=== PATIENT | female | born 1990 | race Caucasian/White ===

== ENCOUNTER 2017-12-05 18:41 | Emergency (ER) | payer OTHER ==
[2017-12-05] MEDS: FAMOTIDINE 20 MG TABLET. PO (19:28)
[2017-12-05] MEDS: predniSONE 20 MG TABLET PO (19:29)
== END 2017-12-05 19:53 | disposition home or self-care (01) ==
LOC: ER 18:41
DX: K13.0 Diseases of lips (principal); K14.8 Other diseases of tongue; T78.1XXA Other adverse food reactions, not elsewhere classified, initial encounter; X58.XXXA Exposure to other specified factors, initial encounter
CPT/HCPCS: 99283; J7512

== ENCOUNTER 2020-05-08 02:11 | Emergency (ER) | payer OTHER ==
[~2020-05-08] VITALS: Ht 165.1 cm; Wt 72.7 kg
[~2020-05-08 02:11] MED LIST: DIPH25CA58 PO; FAMO20TA5 PO; PRED50TA PO
[2020-05-08] MEDS ORDERED: AMOX500C PO (02:36)
[2020-05-08] MEDS ORDERED: TRAM50TA PO (02:36)
[2020-05-08] MEDS ORDERED: IBUP-1027 PO (02:36)
--- NOTE | 2020-05-08 02:37 | PHYS DOC ---
Past Medical History Past Medical History: No Pertinent History Past Surgical History: Appendectomy, , Tubal ligation Additional Past Surgical Histo: c sect x 6 Smoking Status: Current Every Day Smoker Alcohol Use: None Drug Use: None General Adult EDM: Chief Complaint: DENTAL PROBLEM HPI: HPI: Patient is a 30 year old female presents to ER for evaluation of right-sided lower dental pain for 2 days. Patient was not able to see her dentist until this coming Wednesday, tonight she could not sleep because of the pain so she came here for evaluation. Review of Systems: Review of Systems: Constitutional: Denies fever or chills. [] Eyes: Denies change in visual acuity. [] HENT: Denies nasal congestion or sore throat. Positive for dental pain Respiratory: Denies cough or shortness of breath. [] Cardiovascular: Denies chest pain or edema. [] GI: Denies abdominal pain, nausea, vomiting, bloody stools or diarrhea. [] : Denies dysuria. [] Musculoskeletal: Denies back pain or joint pain. [] Integument: Denies rash. [] Neurologic: Denies headache, focal weakness or sensory changes. [] Endocrine: Denies polyuria or polydipsia. [] Lymphatic: Denies swollen glands. [] Psychiatric: Denies depression or anxiety. [] Heart Score: Risk Factors: Risk Factors: DM, Current or recent (<one month) smoker, HTN, HLP, family h istory of CAD, obesity. Risk Scores: Score 0 - 3: 2.5% MACE over next 6 weeks - Discharge Home Score 4 - 6: 20.3% MACE over next 6 weeks - Admit for Clinical Observation Score 7 - 10: 72.7% MACE over next 6 weeks - Early Invasive Strategies Allergies: Allergies: Allergies Coded Allergies Type Severity Reaction Last Updated Verified pineapple Allergy Unknown Swelling 12/05/17 Yes Physical Exam: PE: Constitutional: Well developed, well nourished, no acute distress, non-toxic appearance. [] HENT: Normocephalic, atraumatic, bilateral external ears normal, oropharynx moist, no oral exudates, nose normal. Right lower 2nd and 1st molars with cavities, tender to palpation, no palpable abscess. Eyes: PERRLA, EOMI, conjunctiva normal, no discharge. [] Neck: Normal range of motion, no tenderness, supple, no stridor. [] Cardiovascular:Heart rate regular rhythm, no murmur [] Lungs & Thorax: Bilateral breath sounds clear to auscultation [] Abdomen: Bowel sounds normal, soft, no tenderness, no masses, no pulsatile masses. [] Skin: Warm, dry, no erythema, no rash. [] Back: No tenderness, no CVA tenderness. [] Extremities: No tenderness, no cyanosis, no clubbing, ROM intact, no edema. [] Neurologic: Alert and oriented X 3, normal motor function, normal sensory function, no focal deficits noted. [] Psychologic: Affect normal, judgement normal, mood normal. [] EKG: EKG: [] Radiology/Procedures: Radiology/Procedures: [] Course & Med Decision Making: Course & Med Decision Making Pertinent Labs and Imaging studies reviewed. (See chart for details) [] Dragon Disclaimer: Dragon Disclaimer: This electronic medical record was generated, in whole or in part, using a voice recognition dictation system. Departure Departure Impression: Primary Impression: Dental decay Additional Impression: Pain due to dental caries Disposition: 01 DC HOME SELF CARE/HOMELESS Condition: STABLE Referrals: NO PCP (PCP) please follolw up with your dentist this week. Patient Instructions: Dental Caries, Dental Pain Additional Instructions: Thank you for visiting our Emergency Department. We appreciate you trusting us with your care. If any additional problems come up don't hesitate to return to visit us. Please follow up with your primary care provider so they can plan additional care if needed and know about the problem that you had. If symptoms worsen come back to the Emergency Department. Any concerning symptoms that start such as chest pain, shortness of air, weakness or numbness on one side of the body, running high fevers or any other concerning symptoms return to the ER. Scripts Ibuprofen (IBUPROFEN) 400 Mg Tablet 400 MG PO PRN Q6HRS PRN for INFLAMMATION, #30 TAB Prov: MICHAEL CASEY DO 05/08/20 Tramadol Hcl (TRAMADOL HCL) 50 Mg Tablet 50 MG PO Q6HRS PRN for PAIN, #20 TAB Prov: MICHAEL CASEY DO 05/08/20 Amoxicillin (AMOXICILLIN) 500 Mg Capsule 1 CAP PO TID, #30 CAP Prov: MICHAEL CASEY DO 05/08/20 MICHAEL CASEY DO May 08, 2020 02:37
[2020-05-08 02:54] VITALS: BP 114/74
[2020-05-08] MEDS ORDERED: AMOXICILLIN 250 MG CAPSULE. PO ONE (03:00)
[2020-05-08] MEDS ORDERED: IBUPROFEN 400 MG TABLET. PO ONE (03:00)
[2020-05-08] MEDS ORDERED: HYDROcodone/APAP 5/325MG 1 TAB TABLET PO ONE (03:00)
== END 2020-05-08 02:55 | disposition home or self-care (01) ==
LOC: ER 02:11
DX: K02.9 Dental caries, unspecified (principal); K08.89 Other specified disorders of teeth and supporting structures; F17.200 Nicotine dependence, unspecified, uncomplicated; Z90.89 Acquired absence of other organs; Z98.51 Tubal ligation status; Z98.890 Other specified postprocedural states; Z91.018 Allergy to other foods
CPT/HCPCS: 99284

== ENCOUNTER 2020-09-22 02:23 | Emergency (ER) | payer OTHER ==
[~2020-09-22] VITALS: Ht 162.6 cm; Wt 72.7 kg
[~2020-09-22 02:23] MED LIST changes: +AMOX500C PO; +IBUP-1027 PO; +TRAM50TA PO
[2020-09-22 02:48] LABS: BILIRUBIN,URINE NEGATIVE (NEG); CLARITY,URINE CLOUDY; COLOR,URINE YELLOW; NITRITE,URINE POSITIVE (NEG); PH,URINE 6.5 (<5.0-8.0); PROTEIN,URINE 30 mg/dL (NEG-TRACE)
--- NOTE | 2020-09-22 02:52 | PHYS DOC ---
Past Medical History Past Medical History: Asthma Past Surgical History: Appendectomy, , Tubal ligation Additional Past Surgical Histo: c sect x 7 Smoking Status: Current Every Day Smoker Alcohol Use: None Drug Use: None General Adult EDM: Chief Complaint: FLANK PAIN HPI: HPI: Patient is a 30 year old female with no past medical history presents with a chief complaint of right flank pain. Patient states flank pain has been ongoing yesterday. Patient states pain has been constant since onset. Associated symptoms include urinary frequency she denies any dysuria. Review of Systems: Review of Systems: Review of systems: Constitutional symptoms- No fever, no chills. Eyes- No Discharge, No Visual Loss Respiratory symptoms- No shortness of breath, No wheezing, No Dyspnea on Exertion Cardiovascular Systems; No chest pain, No Palpitations, No syncope Gastrointestinal symptoms: NO abdominal pain, no nausea, no vomiting or diarrhea. Genitourinary symptoms: No dysuria. Positive urinary frequency positive flank pain Musculoskeletal symptoms: No back pain No extremity pain. NEUROLOGICAL Symptoms: No headache, no generalized weakness; No focal Weakness Heart Score: Risk Factors: Risk Factors: DM, Current or recent (<one month) smoker, HTN, HLP, family history of CAD, obesity. Risk Scores: Score 0 - 3: 2.5% MACE over next 6 weeks - Discharge Home Score 4 - 6: 20.3% MACE over next 6 weeks - Admit for Clinical Observation Score 7 - 10: 72.7% MACE over next 6 weeks - Early Invasive Strategies Current Medications: Current Medications Medications (Trade) Dose Ordered Sig/Kurt Start Time Stop Time Status Last Admin Dose Admin Sodium Chloride 1,000 ml @ 1,000 mls/hr 1X ONCE 09/22/20 02:45 09/22/20 03:44 UNV Allergies: Allergies: Allergies Coded Allergies Type Severity Reaction Last Updated Verified pineapple Allergy Severe Swelling 05/08/20 Yes Physical Exam: PE: General: alert, no acute distress. Skin: warm, dry and intact. Head:: Normocephalic, atraumatic. Neck: Trachea midline. Eyes: EOMI, Normal conjunctiva, No drainage CARDIOVASCULAR: Tachycardia RESPIRATORY: No respiratory distress Back: Full range of motion. MUSCULOSKELETAL: Full range of motion of bilateral upper and lower extremities. GASTROINTESTINAL: Abdomen soft without rebound or guarding. NEUROLOGICAL: Alert and noted to person, place and time. No neurological deficits observed Psychiatric: Cooperative. Normal judgment Current Patient Data: Labs: Laboratory Tests Test 09/22/20 02:45 POC Urine HCG, Qualitative Hcg negative (Negative) Vital Signs: Vital Signs Date Time Temp Pulse Resp B/P (MAP) Pulse Ox O2 Delivery O2 Flow Rate FiO2 09/22/20 02:32 99.2 104 16 148/85 (106) 100 Room Air 99.2 EKG: EKG: [] Radiology/Procedures: Radiology/Procedures: [] Course & Med Decision Making: Course & Med Decision Making Pertinent Labs and Imaging studies reviewed. (See chart for details) [] Treatment included 2 L IV fluids. Patient also received Toradol for pain and Rocephin 1 g Patient's urine positive for leukocyte esterase and nitrates WBC too many to count Discussed hospitalization versus outpatient treatment. Patient states she would like to go home. Discharged home on Pyridium and Keflex 500 3 times daily for 14 days. Patient advised to return to the ER if symptoms persist or get worse or any new concerning symptoms arise. Thu Disclaimer: Thu Disclaimer: This electronic medical record was generated, in whole or in part, using a voice recognition dictation system. Departure Departure Impression: Primary Impression: Flank pain Additional Impressions: Pyelonephritis UTI (urinary tract infection) Disposition: 01 DC HOME SELF CARE/HOMELESS Condition: STABLE Referrals: NO PCP (PCP) Patient Instructions: Pyelonephritis, Adult Scripts Phenazopyridine Hcl (PYRIDIUM) 200 Mg Tablet 1 TAB PO TID for urinary discomfort for 3 Days, #9 TAB 0 Refills Prov: MANUEL CALERO DO 09/22/20 Cephalexin (CEPHALEXIN) 500 Mg Capsule 1 CAP PO TID for 14 Days, #42 CAP Prov: MANUEL CALERO DO 09/22/20 MANUEL CALERO DO Sep 22, 2020 02:52
[2020-09-22 02:54] LABS: BACTERIA,URINE MANY /HPF (0-FEW); WBC,URINE TNTC /HPF (0-4)
[2020-09-22 02:58] LABS: BASO % 0 % (0-3); EOS % 1 % (0-3); HEMATOCRIT 33.4 % (36.0-47.0); HEMOGLOBIN 10.6 g/dL (12.0-15.5); LYMPH # 0.5 x10^3/uL (1.0-4.8); LYMPH % 6 % (24-48); MEAN CORPUSCULAR HEMOGLOBIN 22 pg (25-35); MEAN CORPUSCULAR HGB CONC 32 g/dL (31-37); MEAN CORPUSCULAR VOLUME 69 fL (79-100); MONO # 0.3 x10^3/uL (0.0-1.1); MONO % 3 % (0-9); NEUT # 8.1 x10^3/uL (1.8-7.7); NEUT % 90 % (31-73); PLATELET COUNT 272 x10^3/uL (140-400); RED BLOOD COUNT 4.83 x10^6/uL (3.50-5.40); RED CELL DISTRIBUTION WIDTH 18.3 % (11.5-14.5)
[2020-09-22] MEDS ORDERED: IV NORMAL SALINE 1000ML BAG 1,000 ML IV ONE ×2 (03:00→03:45)
[2020-09-22 03:06] LABS: CALCIUM 8.9 mg/dL (8.5-10.1); CREATININE 0.7 mg/dL (0.6-1.0); POTASSIUM 3.7 mmol/L (3.5-5.1)
[2020-09-22 03:12] LABS: ALBUMIN 3.5 g/dL (3.4-5.0); ALBUMIN/GLOBULIN RATIO 0.9 (1.0-1.7); TOTAL BILIRUBIN 0.5 mg/dL (0.2-1.0); TOTAL PROTEIN 7.6 g/dL (6.4-8.2)
[2020-09-22 03:19] LABS: % EOS 1 % (0-5); % LYMPHS 11 % (24-48); % MONOS 3 % (0-10); % SEGS 85 % (35-66); ANISOCYTOSIS SLIGHT; HYPOCHROMIA MOD; MICROCYTOSIS MARKED; PLT ESTIMATE ADEQUATE (ADEQUATE)
[2020-09-22] MEDS ORDERED: KETOROLAC 30 MG/ML VIAL. ONE (03:39)
[2020-09-22] MEDS ORDERED: cefTRIAXone IV Push 1 GM VIAL. IVP ONE (03:45)
[2020-09-22] MEDS ORDERED: KETOROLAC 30 MG/ML VIAL. IVP ONE (04:00)
[2020-09-22] MEDS ORDERED: PHEN-318 PO (04:07)
[2020-09-22] MEDS ORDERED: CEPH500C PO (04:07)
[2020-09-22 05:28] VITALS: BP 105/60
[2020-09-22] MEDS ORDERED: HYDROcodone/APAP 5/325MG 1 TAB TABLET PO ONE (06:00)
== END 2020-09-22 05:36 | disposition home or self-care (01) ==
LOC: ER 02:23
DX: N12 Tubulo-interstitial nephritis, not specified as acute or chronic (principal); N39.0 Urinary tract infection, site not specified; R10.9 Unspecified abdominal pain; R35.0 Frequency of micturition; J45.909 Unspecified asthma, uncomplicated; F17.200 Nicotine dependence, unspecified, uncomplicated; Z90.89 Acquired absence of other organs; Z98.890 Other specified postprocedural states; Z98.51 Tubal ligation status; Z91.018 Allergy to other foods
CPT/HCPCS: 36415; 80053; 81001; 81025; 85007; 85025; 87077; 87086; 96361; 96374; 96375; 99285; J0696; J1885; J7030

== ENCOUNTER 2021-02-12 01:22 | Emergency (ER) | payer OTHER ==
[~2021-02-12] VITALS: Ht 162.6 cm; Wt 75.0 kg
[~2021-02-12 01:22] MED LIST changes: +CEPH500C PO; +PHEN-318 PO
[2021-02-12 01:28] VITALS: BP 124/58
[2021-02-12] MEDS ORDERED: TRAM-48 PO (01:45)
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
--- NOTE | 2021-02-12 02:03 | RAD ---
XR KNEE 3 VIEWS_RT DATE: 02/12/2021 1:52 AM INDICATION: knee pain COMPARISON: None. FINDINGS: Bones: There is no evidence of acute fracture or dislocation. Joints: The joint spaces are normal. Moderate joint effusion. Miscellaneous: None. IMPRESSION: 1. No acute fracture. 2. Moderate joint effusion. Electronically signed by: Cali Saravia MD (02/12/2021 2:01 AM) [facility]
[2021-02-12] MEDS ORDERED: traMADol 50 MG TABLET PO ONE (03:00)
== END 2021-02-12 02:43 | disposition home or self-care (01) ==
LOC: ER 01:22
DX: M25.461 Effusion, right knee (principal); F17.200 Nicotine dependence, unspecified, uncomplicated; J45.909 Unspecified asthma, uncomplicated
CPT/HCPCS: 73562; 99283

== ENCOUNTER 2021-08-12 22:45 | Emergency (ER) | payer OTHER ==
[~2021-08-12] VITALS: Ht 162.6 cm; Wt 65.0 kg
[~2021-08-12 22:45] MED LIST changes: +TRAM-48 PO
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
[2021-08-12 23:17] LABS: BASO # 0.1 x10^3/uL (0.0-0.2); BASO % 1 % (0-3); EOS # 0.1 x10^3/uL (0.0-0.7); EOS % 2 % (0-3); HEMATOCRIT 31.6 % (36.0-47.0); HEMOGLOBIN 9.9 g/dL (12.0-15.5); LYMPH # 2.1 x10^3/uL (1.0-4.8); LYMPH % 32 % (24-48); MEAN CORPUSCULAR HEMOGLOBIN 21 pg (25-35); MEAN CORPUSCULAR HGB CONC 32 g/dL (31-37); MEAN CORPUSCULAR VOLUME 66 fL (79-100); MONO # 0.6 x10^3/uL (0.0-1.1); MONO % 8 % (0-9); NEUT # 3.8 x10^3/uL (1.8-7.7); NEUT % 57 % (31-73); PLATELET COUNT 401 x10^3/uL (140-400); RED CELL DISTRIBUTION WIDTH 17.8 % (11.5-14.5); WHITE BLOOD COUNT 6.7 x10^3/uL (4.0-11.0)
[2021-08-12 23:24] LABS: CALCIUM 8.9 mg/dL (8.5-10.1); CREATININE 0.8 mg/dL (0.6-1.0); GFR 82.6; POTASSIUM 3.3 mmol/L (3.5-5.1)
[2021-08-12 23:26] LABS: PREG TEST PT QUAL NEGATIVE (NEG)
[2021-08-12] MEDS ORDERED: IV NORMAL SALINE 1000ML BAG 1,000 ML IV ONE (23:30)
[2021-08-12] MEDS ORDERED: ACETAMINOPHEN 500 MG TABLET PO ONE (23:30)
[2021-08-12 23:53] LABS: PLT ESTIMATE INCREASED (ADEQUATE)
[2021-08-12 23:54] LABS: MICROCYTOSIS MOD; POLYCHROMASIA SLIGHT
--- NOTE | 2021-08-12 23:55 | RAD ---
EXAMINATION: CT head and cervical spine without IV contrast INDICATION:31 years, Female, . COMPARISON: None TECHNIQUE: Spiral acquisition of contiguous images from the skull base to the vertex were obtained. C T of the cervical spine was obtained using contiguous spiral imaging from the skull base to the upper thoracic level. Sagittal and coronal 2D reformatted series were provided by the technologist. Soft t issue and bone window algorithms were reviewed. Exposure: One or more of the following individualized dose reduction techniques were utilized for thi s examination: 1. Automated exposure control 2. Adjustment of the mA and/or kV according to patient size 3. Use of iterative reconstruction technique. FINDINGS: CT HEAD: The ventricles are normal in size. Neither mass, midline shift, intracranial hemorrhage, acute/subacu te ischemic changes, nor extraaxial fluid collections are seen. The brain parenchyma is normal in carlos enrique earance. Cisterna magna is noted. The paranasal sinuses, mastoid air cells, and middle ears are clear . The orbital contents appear within normal limits.: Right for head scalp contusion. No evidence of c alvarial fracture. CT CERVICAL SPINE: Anatomic alignment of the cervical spine is maintained. Neither fracture, subluxation, nor traumatic spondylolisthesis is seen. The vertebral body heights and intervertebral disk spaces are preserved. T here is no evidence of a large intraspinal hematoma. The prevertebral and paravertebral soft tissues are within normal limits. IMPRESSION: CT HEAD: No evidence of acute intracranial abnormality. Right for head scalp contusion. No evidence of calvari al fracture. CT CERVICAL SPINE: No evidence of fracture or traumatic spondylolisthesis of the cervical spine. Electronically signed by: Palmer Childs DO (08/12/2021 11:52 PM) [facility]
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
[2021-08-13 02:00] VITALS: BP 98/55
[2021-08-13] MEDS ORDERED: KETOROLAC 30 MG/ML VIAL. IVP ONE (03:00)
== END 2021-08-13 03:00 | disposition left against medical advice (07) ==
LOC: ER 22:45 → EEVIPCON 22:45 → ER 08-13 03:00
DX: S00.03XA Contusion of scalp, initial encounter (principal); S61.216A Laceration without foreign body of right little finger without damage to nail, initial encounter; J45.909 Unspecified asthma, uncomplicated; F17.200 Nicotine dependence, unspecified, uncomplicated; Y08.89XA Assault by other specified means, initial encounter; Y93.89 Activity, other specified; Y92.89 Other specified places as the place of occurrence of the external cause; Y99.8 Other external cause status
CPT/HCPCS: 36415; 70450; 72125; 73130; 80048; 84703; 85025; 96361; 96374; 99285; G0480; J1885; J7030

== ENCOUNTER 2021-10-06 04:39 | Emergency (ER) | payer OTHER ==
[~2021-10-06] VITALS: Ht 162.6 cm; Wt 69.8 kg
[2021-10-06 07:33] VITALS: BP 122/67
[2021-10-06] MEDS ORDERED: AMOXICILLIN/K CLAV 875/125MG TABLET. PO ONE (08:45)
[2021-10-06] MEDS ORDERED: IBUPROFEN 400 MG TABLET. PO ONE (08:45)
[2021-10-06] MEDS ORDERED: ACETAMINOPHEN 500 MG TABLET PO ONE (08:45)
[2021-10-06] MEDS ORDERED: AMOX1TAB11 PO (08:48)
[2021-10-06] MEDS ORDERED: DICL50TA2 PO (08:48)
--- NOTE | 2021-10-06 08:48 | PHYS DOC ---
Past Medical History Past Medical History: Asthma Past Surgical History: Appendectomy, , Tubal ligation Additional Past Surgical Histo: c sect x 7 Smoking Status: Current Every Day Smoker Additional Information: 0.5 PPD Alcohol Use: None Drug Use: None Adult General Chief Complaint Chief Complaint: DENTAL PROBLEM HPI HPI 31-year-old female presents for evaluation of right posterior mandibular dental discomfort in association with a fractured tooth. Has been present for 3 days. No fevers, nausea or vomiting, trismus, trouble with secretions, difficulty with swallowing, pain with swallowing, change in voice, pain or swelling to the floor of the mouth or elevation of the tongue. Vital signs appropriate here. No therapy for symptoms prior to arrival. Has not seen a dentist. Review of Systems Review of Systems A 12 point review of systems was completed and was negative except where noted in HPI above. Allergies Allergies Allergies Coded Allergies Type Severity Reaction Last Updated Verified pineapple Allergy Severe Swelling 05/08/20 Yes Physical Exam Physical Exam 31-year-old female appearing nontoxic and in no acute distress. Head is normocephalic and atraumatic. Neck is supple and nontender. Oropharynx is moist. There is a fractured right mandibular molar with mild associated localized erythema and no fluctuance suggestive of abscess. No posterior oropharyngeal erythema, tonsillar exudate or swelling or uvular deviation. Patient is tolerating secretions well and speaking comfortably in a normal tone of voice. No trismus. No pain or swelling to the floor of the mouth or elevation of the tongue. Lungs are clear to auscultation at all stations. There is a normal S1 and S2 without rubs or gallops and capillary refill is appropriate, less than 2 seconds globally. Abdomen is soft, nontender nondistended. Skin is warm and dry without cyanosis, clubbing or edema. Psychiatrically, the patient demonstrates appropriate mood and affect and is alert. Current Patient Data Vital Signs Vital Signs Date Time Temp Pulse Resp B/P (MAP) Pulse Ox O2 Delivery O2 Flow Rate FiO2 10/06/21 07:33 98.6 87 17 122/67 (85) 98 Room Air 98.6 EKG EKG [] Radiology/Procedures Radiology/Procedures [] Course & Med Decision Making Course & Med Decision Making No red flags for dental pain today. Will place on Augmentin and discharged with a diclofenac course and will provide dental referral information. Patient understands that if he feels worse instead of better or develops other new symptoms of concern that she should return to the emergency department immediately for reevaluation. All questions are answered Thu Disclaimer Thu Disclaimer This electronic medical record was generated, in whole or in part, using a voice recognition dictation system. Departure Departure Impression: Primary Impression: Dental decay Disposition: HOME / SELF CARE / HOMELESS Condition: GOOD Patient Instructions: Dental Pain Additional Instructions: Follow-up very closely with a dentist. Your symptoms will not get better until you have an opportunity to see the dentist in the office. Start calling today to find a dentist to see you for your tooth issues. Take the Augmentin antibiotic daily as prescribed for the next 10 days. Take a diclofenac pill every 8 hours as needed for discomfort. Drink lots of fluids and get plenty of rest. Return to the emergency department right away for worsening symptoms of any kind or with any other new symptoms of concern Scripts Diclofenac Potassium (DICLOFENAC POTASSIUM) 50 Mg Tablet 1 TAB PO PRN TID PRN for PAIN, #30 TAB Prov: JETHRO AVINA MD 10/06/21 Amoxicillin/Potassium Clav (AMOX TR-K CLV 875-125 MG TAB) 1 Each Tablet 1 TAB PO BID for 10 Days, #20 TAB Prov: JETHRO AVINA MD 10/06/21 JETHRO AVINA MD Oct 06, 2021 08:48
== END 2021-10-06 09:09 | disposition home or self-care (01) ==
LOC: ER 04:39
DX: K02.9 Dental caries, unspecified (principal); J45.909 Unspecified asthma, uncomplicated; F17.200 Nicotine dependence, unspecified, uncomplicated; Z91.018 Allergy to other foods
CPT/HCPCS: 99284

== ENCOUNTER 2021-10-10 06:34 | Emergency (ER) | payer OTHER ==
[~2021-10-10] VITALS: Ht 162.6 cm; Wt 71.6 kg
[~2021-10-10 06:34] MED LIST changes: +AMOX1TAB11 PO; +DICL50TA2 PO
--- NOTE | 2021-10-10 06:55 | EKG ---
[facility] [address] [place] [address] Test Date: 2021-10-10 Test Time: 06:46:11 Pat Name: OCTOBER KUMAR Department: Room: Gender: F Photographic Double: : 1990 Requested By: AMANDA VICK Order Number: [id number] Reading MD: Edwardo Sanchez Measurements Intervals [place] Rate: 88 P: 67 [place]: 106 QRS: 74 QRSD: 84 T: 55 QT: 354 QTc: 432 Interpretive Statements SINUS RHYTHM MILD NON SPECIFIC ST CHANGES Electronically Signed On 10-12-2021 15:10:46 CDT by Edwardo Sanchez
[2021-10-10] MEDS ORDERED: IV NORMAL SALINE 1000ML BAG 1,000 ML IV ONE (07:00)
[2021-10-10] MEDS ORDERED: DEXAMETHASONE SOD PHOS 20 MG/5 ML VIAL. IV ONE (07:00)
[2021-10-10] MEDS ORDERED: LIDO:MAALOX 1:1 20 ML SINGLE DOSE. SWSW ONE (07:00)
[2021-10-10 07:01] LABS: BASO % 1 % (0-3); EOS # 0.1 x10^3/uL (0.0-0.7); EOS % 1 % (0-3); HEMATOCRIT 30.6 % (36.0-47.0); HEMOGLOBIN 9.4 g/dL (12.0-15.5); LYMPH # 0.5 x10^3/uL (1.0-4.8); LYMPH % 8 % (24-48); MEAN CORPUSCULAR HEMOGLOBIN 20 pg (25-35); MEAN CORPUSCULAR HGB CONC 31 g/dL (31-37); MEAN CORPUSCULAR VOLUME 65 fL (79-100); MONO # 0.5 x10^3/uL (0.0-1.1); MONO % 8 % (0-9); NEUT # 4.9 x10^3/uL (1.8-7.7); NEUT % 82 % (31-73); PLATELET COUNT 283 x10^3/uL (140-400); RED CELL DISTRIBUTION WIDTH 17.8 % (11.5-14.5)
--- NOTE | 2021-10-10 07:04 | PHYS DOC ---
Past Medical History Past Medical History: Asthma Past Surgical History: No Surgical History Additional Past Surgical Histo: c sect x 7 Smoking Status: Current Every Day Smoker Alcohol Use: None Drug Use: None General Adult EDM: Chief Complaint: CHEST WALL PAIN HPI: HPI: 31-year-old female past medical history of iron deficiency anemia and well- controlled asthma, presents the ED with her boyfriend, (patient consents to his/her/their knowledge and involvement in pts' medical care), complaints of midline upper chest pain, described as burning and worse with breathing that started yesterday afternoon. States symptoms initially started with sore throat, dry cough, sore muscles and hoarse voice. Also reports shortness of breath and a mild frontal headache. Reports she slept with the window open the night before. No relief with Mucinex yesterday. Was prescribed amoxicillin 4 days ago for dental pain/decay (emr reviewed-prescribed augmentin and diclofenac). Is a tobacco smoker. Last marijuana use was 2 weeks ago. Last menstrual period was 3-4 days ago. Past surgical history of 7 C-sections (has 7 children), tubal ligation and appendectomy. Is not vaccinated for Covid or influenza. Reports no associated nausea, vomiting, diarrhea, vaginal bleeding, dysuria, hematuria, back or flank pain. Review of Systems: Review of Systems: Constitutional: Denies fever or chills. [] Eyes: Denies change in visual acuity. [] HENT: Denies nasal congestion or rhinorrhea Respiratory: Denies hemoptysis or increased work of breathing Cardiovascular: Denies syncope or edema. [] GI: Denies abdominal pain, nausea, vomiting, bloody stools or diarrhea. [] : Denies dysuria or hematuria Musculoskeletal: Denies back pain or joint pain. [] Integument: Denies rash or diaphoresis Neurologic: Denies neck stiffness, focal weakness or sensory changes. [] Endocrine: Denies polyuria or polydipsia. [] Lymphatic: Denies swollen glands. [] Psychiatric: Denies depression or anxiety. [] Heart Score: C/O Chest Pain: Yes HEART Score for Chest Pain: HEART Score for Chest Pain Response (Comments) Value History Moderately Suspicious 1 ECG Nonspecific Repolarizatio 1 Risk Factors No Risk Factors 0 Troponin < Normal Limit 0 Total 2 Risk Factors: Risk Factors: DM, Current or recent (<one month) smoker, HTN, HLP, family history of CAD, obesity. Risk Scores: Score 0 - 3: 2.5% MACE over next 6 weeks - Discharge Home Score 4 - 6: 20.3% MACE over next 6 weeks - Admit for Clinical Observation Score 7 - 10: 72.7% MACE over next 6 weeks - Early Invasive Strategies Current Medications: Current Medications Medications (Trade) Dose Ordered Sig/Kurt Start Time Stop Time Status Last Admin Dose Admin Dexamethasone Sodium Phosphate (Decadron) 10 mg 1X ONCE 10/10/21 07:00 10/10/21 07:01 UNV Multi-Ingredient Mouthwash/Gargle (Gi Cocktail) 20 ml 1X ONCE 10/10/21 07:00 10/10/21 07:01 UNV Sodium Chloride 1,000 ml @ 1,000 mls/hr 1X ONCE 10/10/21 07:00 10/10/21 07:59 UNV Allergies: Allergies: Allergies Coded Allergies Type Severity Reaction Last Updated Verified pineapple Allergy Severe Swelling 05/08/20 Yes Physical Exam: PE: Constitutional: no acute distress, non-toxic appearance. HENT: Normocephalic, atraumatic, no pharyngeal erythema or exudates, no drooling-is controlling secretions, no hoarse voice, slightly dry mucous membranes Eyes: EOMI, conjunctiva normal, no discharge. Neck: Normal range of motion, supple, Cardiovascular: S1/2 present, regular rhythm Lungs & Thorax: Speaking in full sentences, bilateral equal chest rise, no tachypnea or increased work of breathing Abdomen: soft, no tenderness, Skin: Warm, dry, no erythema, no rash. [] Back: No tenderness, no CVA tenderness. [] Extremities: No tenderness, no cyanosis, no lower extremity edema Neurologic: Alert and oriented X 3, normal motor function, normal sensory function, no focal deficits noted. [] Psychologic: Affect normal, judgement normal, mood normal. [] Current Patient Data: Vital Signs: Vital Signs Date Time Temp Pulse Resp B/P (MAP) Pulse Ox O2 Delivery O2 Flow Rate FiO2 10/10/21 06:40 99.1 94 18 132/76 (94) 100 Room Air 99.1 EKG: EKG: Sinus rhythm 80 bpm, no axis deviation, normal intervals, normal intervals, Q- wave in leads II, III and aVF, no ST elevation or ST depression Radiology/Procedures: Radiology/Procedures: IMAGING REPORT Signed PATIENT: JOSÉOctober ACCOUNT: [id number] : 1990 LOCATION: ER AGE: 31 SEX: F EXAM STATUS: REG ER ORD. PHYSICIAN: AMANDA VICK DO REASON: cp PROCEDURE: CHEST PA & LATERAL PA and lateral chest. HISTORY: Chest pain PA and lateral views of the chest were compared with a prior study from 2012. Lungs are clear. Heart is normal in size. There is no effusion. IMPRESSION: 1. No acute chest disease. Electronically signed by: Rohith Khan MD (10/10/2021 7:21 AM) [id number] DICTATED and SIGNED BY: ROHITH KHAN MD DATE: 10/10/21719 Course & Med Decision Making: Course & Med Decision Making Pertinent Labs and Imaging studies reviewed. (See chart for details) Concern for URI symptoms, positive for influenza A with mild headache and pleurisy. Patient's D-dimer is within normal limits. Patient is a low risk for Mace. Symptoms have been present for more than 12 hours. Labs show iron deficiency anemia. Prescribe Tamiflu and recommend oral hydration, [id number] antipyretics. On reevaluation after analgesia, headache improved. Will discharge home with strict ED return precautions were given for chest pressure, increased work of breathing, confusion or syncope. Encouraged urgent outpatient follow-up with PMD for reevaluation. Life-threatening processes were considered but are low suspicion at this time, given history, physical exam and ED workup. Pt was educated on all prescription medications and adverse effects. All patient's questions were answered and pt was stable at time of discharge. Life/limb-threatening differential includes but is not limited to, meningitis, encephalitis, intracranial hemorrhage, obstructive hydrocephaly, CVA, carbon monoxide poisoning, cerebral or cavernous venous thrombosis, hypertensive emergency, preeclampsia, giant cell arteritis, glaucoma, carotid or vertebral artery dissection, superior vena cava syndrome, infection, optic neuritis, or space-occupying lesions. I have spoken with the patient and/or caregivers. I explained the patient's condition, diagnoses and treatment plan based on the information available to me at this time. I have answered the patient and/or caregiver's questions and addressed any concerns. The patient and/or caregivers have a good understanding of patient's diagnosis, condition and treatment plan as can be expected at this point. Vital signs have been stable. Patient's condition is stable and appropriate for discharge from the emergency department. Patient will pursue further outpatient evaluation with primary care physician or other designated or consulting physician as outlined in the discharge instructions. The patient and/or caregivers are agreeable to this plan of care and follow-up instructions have been explained in detail. The patient and/or caregivers have received these instructions in written form and have expressed an understanding of the discharge instructions. The patient and/or caregivers are aware that any significant change of condition or worsening of symptoms should prompt immediate return to this or the closest emergency department or [facility] to 911. Thu Disclaimer: Thu Disclaimer: This electronic medical record was generated, in whole or in part, using a voice recognition dictation system. Departure Departure Impression: Primary Impression: Influenza A Additional Impressions: Microcytic anemia Headache Disposition: HOME / SELF CARE / HOMELESS Condition: STABLE Referrals: NO PCP (PCP) Follow-up with your primary care physician in 24 to 48 hours for re-evaluation OR FOLLOW UP WITH FAMILY MEDICINE: [address] [place] [address] Patient Instructions: Headache, FAQs, Influenza A (H1N1), Iron Deficiency Anemia Additional Instructions: EMERGENCY DEPARTMENT GENERAL DISCHARGE INSTRUCTIONS Thank you for coming to [facility] Emergency Department (ED) today and trusting us with you care. We trust that you had a positive experience in our Emergency Department. If you wish to speak to the department management, you may call the Director at [phone]. YOUR FOLLOW UP INSTRUCTIONS ARE FOLLOWS: 1. Do you have a private Doctor? If you do not have a private doctor, please ask for a resource list of physicians or clinics that may be able to assist you with follow up care. 2. The Emergency Physicain has interpreted your x-rays. The X-Ray specialist will also review them. If there is a change in the findings, you will be notified in 48 hours when at all possible. 3. A lab test or culture has been done, your results will be reviewed and you will be notified if you need a change in treatment. ADDITIONAL INSTRUCTIONS AND INFORMATION: 1. Your care today has been supervised by a physician who is specially trained in emergency care. Many problems require more than one evaluation for a complete diagnosis and treatment. We recommend that you schedule your follow up appointment as recommended to ensure complete treatment of you illness or injury. If you are unable to obtain follow up care and continue to have a problem, or if your condition worsens, we recommend that you return to the ED. 2. We are not able to safely determine your condition over the phone nor are we able to give sound medical advice over the phone. For these safety reasons, if you call for medical advice we will ask you to come to the ED for further evaluation. 3. If you have any questions regarding these discharge instructions please call the ED at [phone]. SAFETY INFORMATION: In the interest of safety, wellness, and injury prevention; we encourage you to wear your sealbelt, if you smoke; quite smoking, and we encourage family to use a protective helmet for bicycling and other sporting events that present an increased risk for head injury. IF YOUR SYMPTOMS WORSEN OR NEW SYMPTOMS DEVELOP, OR YOU HAVE CONCERNS ABOUT YOUR CONDITION; OR IF YOUR CONDITION WORSENS WHILE YOU ARE WAITING FOR YOUR FOLLOW UP APPOINTMENT; EITHER CONTACT YOUR PRIMARY CARE DOCTOR, THE PHYSICIAN WHOSE NAME AND NUMBER YOU WERE GIVEN, OR RETURN TO THE ED IMMEDIATELY. Scripts Famotidine (PEPCID) 20 Mg Tablet 20 MG PO BID for 14 Days, #28 TAB Prov: AMANDA VICK DO 10/10/21 Oseltamivir Phosphate (TAMIFLU) 75 Mg Capsule 1 CAP PO BID for 5 Days, #10 CAP Prov: AMANDA VICK DO 10/10/21 AMANDA VICK DO Oct 10, 2021 07:04
[2021-10-10 07:10] LABS: CALCIUM 8.4 mg/dL (8.5-10.1); CREATININE 0.7 mg/dL (0.6-1.0); GFR 96.4; POTASSIUM 3.9 mmol/L (3.5-5.1)
[2021-10-10 07:16] LABS: ALBUMIN 3.2 g/dL (3.4-5.0); ALBUMIN/GLOBULIN RATIO 0.9 (1.0-1.7); TOTAL BILIRUBIN 0.3 mg/dL (0.2-1.0); TOTAL PROTEIN 6.7 g/dL (6.4-8.2)
--- NOTE | 2021-10-10 07:23 | RAD ---
PA and lateral chest. HISTORY: Chest pain PA and lateral views of the chest were compared with a prior study from 2013. Lungs are clear. Heart is normal in size. There is no effusion. IMPRESSION: 1. No acute chest disease. Electronically signed by: Rohith Boo MD (10/10/2021 7:21 AM) [id number]
[2021-10-10 07:50] LABS: INFLUENZA B PATIENT NEGATIVE (NEGATIVE)
[2021-10-10 08:04] LABS: INFLUENZA A PATIENT POSITIVE (NEGATIVE)
[2021-10-10 08:33] LABS: ANISOCYTOSIS SLIGHT; PLT ESTIMATE ADEQUATE (ADEQUATE)
[2021-10-10] MEDS ORDERED: KETOROLAC 15 MG/ML VIAL. IVP ONE (09:30)
[2021-10-10] MEDS ORDERED: METOCLOPRAMIDE HCL 10 MG/2 ML VIAL. IVP ONE (09:30)
[2021-10-10] MEDS ORDERED: diphenhydrAMINE 50 MG/ML VIAL IVP ONE (09:30)
[2021-10-10] MEDS ORDERED: OSEL75CA PO (09:51)
[2021-10-10] MEDS ORDERED: FAMO-63 PO (10:01)
[2021-10-10 10:02] VITALS: BP 98/54
== END 2021-10-10 10:12 | disposition home or self-care (01) ==
LOC: ER 06:34
DX: J10.1 Influenza due to other identified influenza virus with other respiratory manifestations (principal); D50.9 Iron deficiency anemia, unspecified; Z20.822 Contact with and (suspected) exposure to COVID-19; R51.9 Headache, unspecified; J45.909 Unspecified asthma, uncomplicated; Z72.0 Tobacco use; Z91.018 Allergy to other foods
CPT/HCPCS: 36415; 71046; 80053; 81025; 83690; 84484; 85025; 85379; 87070; 87428; 87880; 93005; 96361; 96374; 96375; 99285; J1100; J1200; J1885; J2765; J7030